=== PATIENT | male | born 1990 | race African-American/Black ===

== ENCOUNTER 2024-02-19 12:12 | Emergency (ER) | payer MEDICAID ==
[~2024-02-19] VITALS: Ht 185.4 cm; Wt 71.0 kg
[2024-02-19 12:14] VITALS: O2SAT 99
[2024-02-19] MEDS: TETANUS, DIPHTHERIA, PERTUSSIS VAC/PF 0.5ML (>10YR OLD) IM ONE (14:29)
[2024-02-19] MEDS: LIDOCAINE HCL 1% 20ML VIAL INFIL ONE (14:29)
[2024-02-19 14:31] VITALS: BP 135/88; PULSE 66; RESP 18; TEMP 98.2
[2024-02-19] MEDS ORDERED: BO1 TP (14:35)
== END 2024-02-19 14:43 | disposition home or self-care (01) ==
LOC: ER 12:12
DX: S61.211A Laceration without foreign body of left index finger without damage to nail, initial encounter (principal); X58.XXXA Exposure to other specified factors, initial encounter; Y93.89 Activity, other specified; Y92.89 Other specified places as the place of occurrence of the external cause; Y99.8 Other external cause status
CPT/HCPCS: 73140; 90715; 12001; 90471; 99283; J3490; Z7610

== ENCOUNTER 2024-03-07 17:06 | Emergency (ER) | payer MEDICAID ==
[~2024-03-07] VITALS: Ht 185.4 cm; Wt 70.7 kg
[~2024-03-07 17:06] MED LIST: BO1 TP
[2024-03-07 17:17] VITALS: BP 106/63; PULSE 68; RESP 16; TEMP 98; O2SAT 100
== END 2024-03-07 17:52 | disposition home or self-care (01) ==
LOC: ER 17:06
DX: S61.211D Laceration without foreign body of left index finger without damage to nail, subsequent encounter (principal); Z48.02 Encounter for removal of sutures; X58.XXXD Exposure to other specified factors, subsequent encounter
CPT/HCPCS: 99281